=== PATIENT | male | born 1970 | race Caucasian/White ===

== ENCOUNTER 2024-08-11 08:13 | Outpatient (REF) | payer OTHER, SELFPAY ==
--- NOTE | ~2024-08-11 | XR_ITS ---
EXAMINATION: XR LEFT FOOT 3 VIEWS CLINICAL INFORMATION: Foreign body. Patient states pain and piece of wood in foot about 3 months ago. Still feels something in it. COMPARISON: None available. TECHNIQUE: AP, lateral, and oblique views of the left foot. FINDINGS: The bones and soft tissues are normal. No fracture. Alignment is anatomic. Joint spaces are maintained. No radiopaque foreign bodies or subcutaneous gas. XR/XR foot LT min 3V IMPRESSION: Normal left foot. Electronically signed by: Fran Peterson DO 10/12/2024 11:34 AM [facility]AN
== END 2024-08-11 08:14 | disposition home or self-care (01) ==
LOC: HO.XRAY 08:13
PROVIDERS: Visit Provider Internal Medicine
DX: T14.8XXA Other injury of unspecified body region, initial encounter (principal); X58.XXXA Exposure to other specified factors, initial encounter; Y93.9 Activity, unspecified; Y92.9 Unspecified place or not applicable; Y99.9 Unspecified external cause status
CPT/HCPCS: 73630